=== PATIENT | female | born 1955 | race Caucasian/White ===

== ENCOUNTER 2019-10-27 05:52 | Day surgery (SDC) | payer MEDICARE ==
[2019-10-26 11:06] LABS: BASOPHILS # (AUTO) 0.1 X10'3 (0-0.2); BASOPHILS % (AUTO) 0.9 % (0-1); EOSINOPHILS # (AUTO) 0.3 X10'3 (0-0.9); EOSINOPHILS % (AUTO) 3.5 % (0-6); HEMATOCRIT 40.5 % (35.0-45.0); HEMOGLOBIN 13.4 g/dl (12.0-16.0); LYMPHOCYTES # (AUTO) 1.3 X10'3 (1.1-4.8); LYMPHOCYTES % (AUTO) 17.1 % (21-51); MEAN CORPUSCULAR HEMOGLOBIN 31.1 PG (27.0-31.0); MEAN CORPUSCULAR HGB CONC 33.1 g/dL (33.0-36.5); MEAN CORPUSCULAR VOLUME 93.9 FL (78-98); MEAN PLATELET VOLUME 8.1 FL (7.4-10.4); MONOCYTES # (AUTO) 0.6 X10'3 (0-0.9); MONOCYTES % (AUTO) 7.7 % (2-12); NEUTROPHILS # (AUTO) 5.4 X10'3 (1.8-7.7); NEUTROPHILS % (AUTO) 70.8 % (42-75); PLATELET COUNT 268 X10'3 (140-440); RED BLOOD COUNT 4.32 X10'6 (4.20-5.60); RED CELL DISTRIBUTION WIDTH 13.8 % (11.5-14.5); WHITE BLOOD COUNT 7.6 X10'3 (4.5-11.0)
[2019-10-26 11:13] LABS: ALBUMIN 3.1 G/DL (3.4-5.0); ANION GAP 3 (8-16); BLOOD UREA NITROGEN 23 MG/DL (7-18); BUN/CREATININE RATIO 22.1 (6.6-38.0); CALCIUM 9.1 MG/DL (8.5-10.1); CHLORIDE 108 MMOL/L (99-107); CREATININE 1.04 MG/DL (0.40-0.90); GLUCOSE 140 MG/DL (70-104); POTASSIUM 4.9 MMOL/L (3.5-5.1); SODIUM 141 MMOL/L (135-145); TOTAL CARBON DIOXIDE 30.4 MMOL/L (24-32); eGFR 54 ML/MIN
[2019-10-26 11:17] LABS: PARTIAL THROMBOPLASTIN TIME 26 SECONDS (22-32)
[2019-10-27] VITALS (11 sets, daily range): BP systolic 102–138; BP diastolic 52–86
[~2019-10-27] VITALS: Ht 175.3 cm; Wt 146.3 kg
[~2019-10-27 05:52] MED LIST: ASPI-611 PO; CARV6.253 PO; CHOL100046 PO; CITA40TA22 PO; CLON-528 PO; GABAPENTIN PO; LISI-604 PO; MELO-100 PO; METF-438 PO; PANT40SU2 PO; TRAM50TA2 PO; ZOLP10TA5 PO
[2019-10-27] MEDS ORDERED: LORazepam 0.5 MG tablet PO PRN (06:40)
[2019-10-27] MEDS ORDERED: normal saline 1,000 ML IV SCH (06:40)
[2019-10-27] MEDS ORDERED: diphenhydrAMINE 25mg capsule PO PRN (06:40)
[2019-10-27] MEDS ORDERED: nitroGLYCERIN-Tridil 50MG/D5W 250 ML IV ONE (07:24)
[2019-10-27] MEDS ORDERED: verapamil 2.5 mg/ml inj IV ONE (07:24)
[2019-10-27] MEDS ORDERED: fentaNYL/PF 50MCG/1 ML 2ML syringe ONE (07:24)
[2019-10-27] MEDS ORDERED: heparin 1,000unit/ml 10ml vial 10 ML ONE (07:24)
[2019-10-27] MEDS ORDERED: LIDOcaine 1% (10mg/ml)w/preservative injection 20ml MDV ONE (07:24)
[2019-10-27] MEDS ORDERED: midazolam 2 mg/2 ml injection ONE (07:24)
[2019-10-27] MEDS ORDERED: iohexol 350MG/ML 100ml bottle IV ONE (07:25)
[2019-10-27] MEDS ORDERED: iohexol 350 MG/ML 50ML vial IV ONE (07:25)
[2019-10-27] MEDS ORDERED: GABA-534 PO (07:40)
[2019-10-27] MEDS ORDERED: TRAZ-251 PO (07:42)
[2019-10-27] MEDS ORDERED: PANT20TA3 PO (07:44)
[2019-10-27] MEDS ORDERED: ATOR40TA PO (07:45)
[2019-10-27] MEDS ORDERED: CHOL200077 PO (07:47)
[2019-10-27] MEDS ORDERED: ACET-2971 PO (07:47)
[2019-10-28 07:21] LABS: ISTAT HGB ART 11.9 g/dl (12.0-16.0); ISTAT Hct ART 35 %PCV (35-48); ISTAT O2 SATURATION ARTERIAL 94 % (95-98); ISTAT SOURCE ART
[2019-10-28 07:21] LABS: ISTAT Hct MIX 34 %PCV (35-48); ISTAT O2 SATURATION MIX VENOUS 71 % (60-80); ISTAT SOURCE MIX
== END 2019-10-27 15:00 | disposition home or self-care (01) ==
LOC: SSTAY O 05:52 → MED 3N 05:52 → SSTAY O 15:00
PROVIDERS: ATTEND Internal Medicine Cardiovascular Disease
DX: R94.39 Abnormal result of other cardiovascular function study (principal); I10 Essential (primary) hypertension; E11.9 Type 2 diabetes mellitus without complications; E78.49 Other hyperlipidemia; F41.9 Anxiety disorder, unspecified; G47.00 Insomnia, unspecified; E28.2 Polycystic ovarian syndrome; G47.30 Sleep apnea, unspecified; I47.1 Supraventricular tachycardia; E66.9 Obesity, unspecified; Z68.43 Body mass index [BMI] 50.0-59.9, adult; Z79.899 Other long term (current) drug therapy; Z79.82 Long term (current) use of aspirin; Z79.84 Long term (current) use of oral hypoglycemic drugs; Z90.710 Acquired absence of both cervix and uterus; Z79.01 Long term (current) use of anticoagulants; Z98.890 Other specified postprocedural states; Z87.891 Personal history of nicotine dependence; Z81.1 Family history of alcohol abuse and dependence; Z82.5 Family history of asthma and other chronic lower respiratory diseases; Z82.61 Family history of arthritis
CPT/HCPCS: 36415; 80048; 82803; 85014; 85025; 85610; 85730; 93005; 93460; 99152; 99153; C1769; C1894; J1644; J2001; J2250; J3010; Q9967; A4620; A5120; GO378; J3490